=== PATIENT | male | born 1985 | race Caucasian/White ===

== ENCOUNTER 2020-02-25 17:51 | Emergency (ER) | payer OTHER ==
[~2020-02-25] VITALS: Ht 177.8 cm; Wt 81.7 kg
[2020-02-25] MEDS ORDERED: BACLOFEN 10MG T10 MG PO (18:46)
[2020-02-25] MEDS ORDERED: MELOXICAM15 MG PO (18:46)
[2020-02-25 19:17] VITALS: BP 118/64
== END 2020-02-25 19:17 | disposition home or self-care (01) ==
LOC: M.ERS 17:51
DX: M54.5 Low back pain (principal)